=== PATIENT | female | born 1930 | race Caucasian/White ===

== ENCOUNTER 2016-08-09 02:39 | Inpatient (IN) ==
[2016-08-07 12:08] LABS: HEMATOCRIT 47.6 % (37.0-47.0); HEMOGLOBIN 15.5 g/dL (12.0-16.0); MCHC 32.6 g/dL (33-37); MCV 92.2 FL (81-99); MPV 9.7 FL (7.4-10.4); RBC 5.16 XMIL (4.2-5.4)
--- NOTE | 2016-08-07 12:22 | EKG Report ---
Test Performed on : 08/07/2016 11:56:51 AM Test Reason : PAT Blood Pressure : / mmHG Vent. Rate : 078 BPM Atrial Rate : 078 BPM P-R Int : 178 ms QRS Dur : 078 ms QT Int : 388 ms P-R-T Axes : 063 035 048 degrees QTc Int : 442 ms Normal sinus rhythm. Septal infarct , age undetermined Abnormal ECG No previous ECGs available Confirmed by Nagi ABBOTT, Marvin Fernandez ([id number]) on 08/07/2016 6:52:31 PM
[2016-08-07 12:33] LABS: AGAP 11; BUN 15 mg/dL (8-22); CALCIUM 9.3 mg/dL (8.8-10.2); CHLORIDE 98 mmol/L (98-107); COSMO 278; POTASSIUM 4.3 mmol/L (3.5-5.1); SODIUM 139 mmol/L (136-145); TCO2 30 mmol/L (25-35)
[2016-08-09] MEDS ORDERED: KEFZOL 1 GM/D5W 50 ML ONE (05:31)
[2016-08-09] MEDS ORDERED: REGLAN ONE (05:31)
[2016-08-09] MEDS ORDERED: LR 1,000 ML ONE ×2 (05:31→11:00)
[2016-08-09] MEDS ORDERED: PEPCID ONE (05:31)
[2016-08-09] MEDS ORDERED: ALBUTEROL NEB INH ONE (06:25)
[2016-08-09] MEDS ORDERED: ALBUTEROL NEB ONE (06:34)
[2016-08-09] MEDS ORDERED: KEFZOL ONE (07:11)
[2016-08-09] MEDS ORDERED: HEPARIN ONE ×2 (07:11)
[2016-08-09] MEDS ORDERED: MARCAINE 0.25% PF/EPI 1:200,000 ONE (07:11)
[2016-08-09] MEDS ORDERED: NS 2,000 ML ONE (07:12)
[2016-08-09 08:40] LABS: URINE MICRO REVIEW NEEDED? NO; URINE SOURCE CATH
[2016-08-09 08:52] LABS: BILIRUBIN URINE NEGATIVE (NEGATIVE); BLOOD URINE NEGATIVE (NEGATIVE); COLOR YELLOW; GLUCOSE URINE NEGATIVE (NEGATIVE); LEUKOCYTES URINE NEGATIVE (NEGATIVE); NITRITE URINE NEGATIVE (NEGATIVE); PROTEIN URINE NEGATIVE (NEGATIVE); SP GRAVITY URINE 1.015; TURBIDITY URINE TURBID (CLEAR); UROBILINOGEN URINE NORMAL (NORMAL)
[2016-08-09 08:55] LABS: UR EPITHELIAL CELLS <10 /HPF (<10); URINE BACTERIA NEGATIVE /HPF; URINE RBC <10 /HPF (<10); URINE WBC <10 /HPF (<10)
[2016-08-09] MEDS ORDERED: DIPRIVAN 1% ONE (10:29)
[2016-08-09] MEDS ORDERED: NS 1,000 ML ONE (10:46)
[2016-08-09] MEDS ORDERED: STERILE WATER INJ. ONE (10:59)
[2016-08-09] MEDS ORDERED: SODIUM CHLORIDE 0.9% 10 ML ONE (10:59)
[2016-08-09] MEDS ORDERED: NEO-SYNEPHRINE ONE (10:59)
[2016-08-09] MEDS ORDERED: ZOFRAN ONE (10:59)
[2016-08-09] MEDS ORDERED: EPHEDRINE ONE (11:00)
[2016-08-09] MEDS ORDERED: NS 250 ML ONE (11:00)
[2016-08-09] MEDS ORDERED: ROBINUL ONE (11:00)
[2016-08-09] MEDS ORDERED: NORCURON ONE (11:00)
[2016-08-09] MEDS ORDERED: QUELICIN (DOSE) ONE (11:00)
[2016-08-09] MEDS ORDERED: DECADRON ONE (11:00)
[2016-08-09] MEDS ORDERED: PIGGYBACK SET 7393 ONE (11:00)
[2016-08-09] MEDS ORDERED: XYLOCAINE-MPF 2% ONE (11:00)
--- NOTE | 2016-08-09 11:04 | OPERATIVE NOTE ---
PROCEDURE DATE: 08/09/2016 PROCEDURE PERFORMED: 1. Bilateral femoral artery exposure, open coiling of the right hypogastric artery using an 8 x 14 mm interlock coil x2. 2. Endovascular aneurysm repair using a 26 x 12 x 18 graft with a 12 x 12 left limb. SURGEON: Vince Haley MD. OVEN OPERATOR AUTOMATIC: . 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 POSTOPERATIVE DIAGNOSIS: A 5.5 cm infrarenal abdominal aortic aneurysm and right common iliac artery aneurysm. INDICATION: This is an 86-year-old lady with a 5.5 cm aneurysm with a right common iliac aneurysm that goes right down to the right internal takeoff. It was decided preoperatively to coil the right internal iliac so that we could cover the aneurysm completely and cover the internal, thereby treating the right common iliac aneurysm appropriately. DESCRIPTION OF PROCEDURE IN DETAIL: After satisfactory general endotracheal anesthesia was achieved, the abdomen was prepped and draped in a sterile fashion. An Ioban drape was used. We could palpate the femoral pulses. We marked the drape transversely over the palpated pulse, anesthetized the skin with 0.25 Marcaine with epinephrine. We made a transverse incision over the pulse at the ilioinguinal ligament. After incising the skin, we carried our incision through the subcutaneous tissue and exposed the common femoral as it came under the ilioinguinal ligament on both sides. We surrounded it with an umbilical tape proximally and a large vessel loop distally. Small branches were surrounded with 2-0 silks on both sides. We then gave the patient 5000 units of heparin systemically. We placed a 6-Norwegian sheath, Seldinger technique, in the left common femoral and did the same on the right side. We passed a Glidewire into the aorta, followed by a pigtail catheter. We then shot an aortogram showing bilateral patency to the internal iliacs. It also established the locale of the renal arteries. We then chose a Berenstein catheter that we passed up the left and followed by a Chencho wire. We shot a retrograde arteriogram on the right to document the takeoff of the internal iliac on the right side. We then used our pigtail catheter to enter the right common iliac from the left side. We then switched to a Chencho wire and then passed the Berenstein catheter over that wire. We positioned it at the takeoff of the opening or the orifice to the right internal iliac. We then took out the Chencho wire and passed our Glidewire. We gained access to the right internal iliac but before we could deploy the coil, we lost access so we had to repeat the procedure. This time, we used again a pigtail catheter to enter the right common iliac from the left side, followed by a Chencho wire, followed by a 55 cm sheath, a 6-Norwegian sheath to go over to that side. We then reintroduced the Berenstein catheter, then a Glidewire. With torquing of the Berenstein catheter, as well as torquing on the Glidewire, we were able to engage the orifice to the right internal iliac. Once we advanced the Glidewire down into the internal iliac, we then advanced the Berenstein catheter. We then obtained the 8 x 14 interlock coils and carried them all the way across the Berenstein catheter. After we got the coils down to the tip of the catheter, we retracted the catheter back to the proximal right internal iliac and in the position where we wanted to deployed the coils to take care of those proximal branches. We deployed two 8 x 14 coils. We felt good about the occlusion of this vessel. I then removed the Berenstein catheter and pulled the long sheath back into the left common iliac. At this point, we passed our Glidewire back up the right side into the aorta, followed by a Berenstein catheter, followed by a Chencho wire, followed by the 16-Norwegian sheath. We then introduced the 26 x 12 x 18 device up the right side, up to the takeoff of the renals. We put our pigtail back up the left and shot a picture of the renals to show them. Then we opened the proximal end right below the renal take-off, left renal taken off. We pulled the pigtail back. We were able to engage the gate and pass the Glidewire up into the graft. We then followed that with a pigtail. We pulled the wire back and twirled the pigtail inside the graft, proving we were inside the graft. We then switched to a Chencho wire and advanced our 12-Norwegian sheath up on the left side to the gate. We shot a retrograde arteriogram on the left to elham the internals. We then measured and determined that a 12 x 12 length graft limb would be fine going down the left side. It would give us plenty of length between the end of the graft and the internal iliac takeoff. We did not think an extension would be required. We then introduced the 12-Norwegian up to the top of the gate. Advanced the 12 x 12. Then pulled the sheath back and then deployed the 12 x 12 limb. We then pulled the sheath back on the right and finished deployment of the right side as well. It actually covered the internal take-off satisfactorily. We then put our aortic balloon up on the right side and ballooned the proximal end. We did put a 12 x 4 balloon up the left side and we ballooned the gate area, the bifurcation, and then the end of the graft on both sides. We replaced our pigtail and shot a completion aortogram. This showed no leak. The right common iliac aneurysm had been isolated and no filling of that aneurysm was identified. There was no flow down the right internal iliac as expected. The left internal remains patent. We were then satisfied with our completed grafting and coiling. We then removed the sheaths, closed both common femorals with 5-0 Prolene running stitches. We irrigated out both wounds with Kefzol- impregnated saline, placed 3-0 Polysorb in the subcutaneous tissue to cover the tissue over the artery, and then used a 2-0 Polysorb running in the Alex's fascia. We once again injected 0.25 Marcaine with epinephrine. We then closed the skin on each side with 4-0 Polysorb subcuticular stitches. Telfa and sterile OpSite were applied. She tolerated it well. Estimated blood loss was about 100 mL. She did require 170 mL of contrast. She was sent to the recovery room in satisfactory condition.
[2016-08-09] MEDS ORDERED: ZOFRAN IV PRN (13:26)
[2016-08-09] MEDS ORDERED: BUPRENEX IV PRN (13:26)
[2016-08-09] MEDS: NS 1,000 ML IV SCH ×3 (14:43→21:53)
[2016-08-10] MEDS: NS 1,000 ML IV SCH ×4 (03:43→14:22)
[2016-08-10 05:30] LABS: MANUAL DIFF NEEDED? NO
[2016-08-10 05:32] LABS: BASO% 0.1 % (0.0-0.8); EOS# 0.01 X1000 (0.0-0.7); EOS% 0.1 % (0.0-10.0); HEMATOCRIT 37.2 % (37.0-47.0); HEMOGLOBIN 11.9 g/dL (12.0-16.0); LYMPH# 1.57 X1000 (1.2-3.4); MCH 30.4 PG (27-31); MCV 94.9 FL (81-99); MONO# 0.97 X1000 (0.11-0.59); MONO% 9.9 % (1.7-9.3); MPV 9.4 FL (7.4-10.4); NEUT% 73.9 % (42.2-75.2); PLT 187 X1000 (130-400); RBC 3.92 XMIL (4.2-5.4)
[2016-08-10 05:49] LABS: AGAP 7; BUN 8 mg/dL (8-22); CALCIUM 7.1 mg/dL (8.8-10.2); CHLORIDE 106 mmol/L (98-107); COSMO 275; POTASSIUM 3.9 mmol/L (3.5-5.1); SODIUM 139 mmol/L (136-145); TCO2 26 mmol/L (25-35)
[2016-08-10] MEDS: NORCO-10 PO PRN ×2 (12:48→21:01)
--- NOTE | 2016-08-11 10:06 | PROGRESS NOTE ---
DATE: 08/11/2016 SUBJECTIVE: Patient doing well. No major issues. Transferred from the ICU yesterday. OBJECTIVE: Vital Signs: Patient is currently afebrile. Her vital signs have been stable. General: No acute distress. Resting comfortably in bed. Cardiovascular: Regular rate and rhythm. Lungs: Grossly clear. Abdomen: Soft, nontender, nondistended. Incision is okay. Extremities: The lower extremities are perfused. ASSESSMENT/PLAN: An 86-year-old, female, status post endovascular and aneurysmal repair. Overall patient is doing well tolerating a regular diet. We will plan on discharge tomorrow. cc: MD Vince Arroyo MD
[2016-08-11] MEDS: NS 1,000 ML IV SCH (21:20)
[2016-08-11] MEDS: NORCO-10 PO PRN (21:20)
--- NOTE | 2016-08-12 07:09 | PROGRESS NOTE ---
DATE: 08/12/2016 SUBJECTIVE: Patient did have an episode of desaturation last night. She is now currently on 4 L nasal cannula. Says that she was a strong smoker in the past but at this time denies any kind of significant shortness of breath. OBJECTIVE: Vital Signs: Patient is currently afebrile. Her vital signs have been stable. Her current O2 saturations are in the high 90s on 4 L nasal cannula. General Examination: No acute distress. Cardiovascular: Regular rate and rhythm. Lungs: Some coarse sounds noted. Abdomen: Soft, nontender, nondistended. Incision is okay. Extremities: Lower extremities perfused. ASSESSMENT/PLAN: An 86-year-old, female, status post endovascular aneurysmal repair. Postoperative state. At this time, the patient seems to be doing relatively well. Her respiratory status has become somewhat of an issue. She has a strong smoking past history. She did not require any supplemental oxygen at home. We will mobilize the patient and check her oxygen saturations. If continues to be an issue, may need supplemental oxygen and a pulmonary consult. If normalizing, we will consider discharge later today. Otherwise, we will keep into the week. cc: MD Vince Arroyo MD
[2016-08-12] MEDS: NS 1,000 ML IV SCH ×2 (07:51→16:08)
[2016-08-12 12:42] LABS: ALLEN TEST YES; BE 3.9 mmoll (-3.0-3.0); BLOOD TYPE ARTERIAL; DRAW SITE R RADIAL; METHB 1.7 % (0.0-1.5); O2(CT) 17.5 mL/dL (15.0-23.0); PCO2(98.6) 38 mmHg (35-45); PO2(98.6) 52 mmHg (60-100); SAMPLE BLOOD; SAO2 95.8 % (95.0-100.0); THB 13.7 g/dL (11.5-17.4); pH(98.6) 7.47 (7.35-7.45)
[2016-08-12 12:43] LABS: MODALITY CANNULA
[2016-08-12 13:17] LABS: MANUAL DIFF NEEDED? NO
[2016-08-12 13:21] LABS: BASO% 0.2 % (0.0-0.8); EOS# 0.08 X1000 (0.0-0.7); EOS% 0.9 % (0.0-10.0); HEMATOCRIT 45.2 % (37.0-47.0); HEMOGLOBIN 14.4 g/dL (12.0-16.0); LYMPH# 1.34 X1000 (1.2-3.4); LYMPH% 15.4 % (20.5-51.1); MCH 30.7 PG (27-31); MCHC 31.9 g/dL (33-37); MCV 96.4 FL (81-99); MONO# 0.84 X1000 (0.11-0.59); MONO% 9.7 % (1.7-9.3); MPV 9.9 FL (7.4-10.4); NEUT% 73.8 % (42.2-75.2); PLT 220 X1000 (130-400); RBC 4.69 XMIL (4.2-5.4)
[2016-08-12 14:07] LABS: AGAP 9; ALBUMIN 3.2 g/dL (3.5-5.0); ALKALINE PHOSPHATASE 67 U/L (32-104); BUN 5 mg/dL (8-22); CALCIUM 7.9 mg/dL (8.8-10.2); CHLORIDE 98 mmol/L (98-107); COSMO 268; GOT 21 U/L (10-30); GPT 10 U/L (10-36); MAGNESIUM 1.7 mg/dL (1.5-2.7); POTASSIUM 3.3 mmol/L (3.5-5.1); SODIUM 135 mmol/L (136-145); TCO2 28 mmol/L (25-35); TOTAL PROTEIN 6.6 g/dL (6.3-8.3)
--- NOTE | 2016-08-12 14:29 | Diag Imaging Result Document ---
PROCEDURE NAME: CHEST-PORTABLE - 08/12/2016 PORTABLE CHEST: COMPARISON: No comparison exam. FINDINGS: There are apparent COPD changes. There are small to medium bilateral pleural effusions. It is difficult to determine if there is any basilar consolidation present. There is no pneumothorax seen. The heart borders are largely obscured which limits evaluation for heart size. IMPRESSION: 1. COPD. 2. Small to medium bilateral pleural effusions.
--- NOTE | 2016-08-12 14:48 | PROGRESS NOTE ---
DATE: 08/12/2016 ADDENDUM REPORT PAST MEDICAL HISTORY: She has appendectomy, cholecystectomy, she has had a hysterectomy. These were done years ago. She really does not have any other medical problems other than she gets bronchitis. ALLERGIES: She is allergic to sulfa. She does not have home oxygen and the saturations have been dropping. We are going to check blood gasses. We will see. We have got to determine whether she needs O2. If she has to go home with oxygen we need to get that set up. We will check blood gasses. We will check a chest x-ray, continue her present treatments. Her oxygen saturations right now are 94% on 2 L. I told her there is a good chance she would not go home today. We need to determine whether she needs oxygen or not. cc: MD Vince Jay MD
--- NOTE | 2016-08-12 15:41 | CONSULTATION ---
DATE OF CONSULTATION: 08/12/2016 HISTORY OF PRESENT ILLNESS: Patient was admitted to the hospital on 08/07/2016 I believe for a triple abdominal aortic aneurysm repair. Patient underwent bilateral femoral artery exposure and then endovascular aneurysm repair per Dr. Haley and that was done on 08/09/2016. Recovery has been good. She was in the unit. She had a little bit of sore throat. She is complaining that her ears feel a little bit stopped up, but she does not feel short of breath, and she is anxious and wanting to go home. EKG from the shows normal sinus rhythm, slow R-wave progression. Loss of R-waves in V2. I do not have any comparison at this time. CT of the neck, chest, abdomen, pelvis back in 06/29/2016 showed severe pulmonary emphysema, patchy fibrosis in the apices in lung bases, superimposed infectious infiltrate at that time in the right lung base. She had large aortic and right iliac aneurysm that had increased in size. Aortic aneurysm measured 5 x 5 cm. Previously was 3.4 x 3.3, and another smaller intrarenal abdominal aortic aneurysm that was contiguous or more superior to the 1st and measured 4.9 x 4.2. Extensive iliac atherosclerotic disease. PAST MEDICAL HISTORY: Peripheral vascular disease. COPD. Osteoarthritis. Long history of smoking. She has had allergic rhinitis and bilateral eustachian tube obstruction before. She underwent surgery as I said on the and has done well. Diet has been advanced. PHYSICAL EXAMINATION: General: Today sitting up in a chair. Awake, alert and oriented x3. Vital signs: Temperature 98.6 degrees, pulse 74, respirations 18, blood pressure 139/70. HEENT: Pupils are equal and round, central venous pressure less than 6 cm. Lungs: Clear in all lung huggins. Cardiovascular: Regular rhythm and rate without murmur or S3. Urine output was 1300 mL. LABORATORY: Reviewed from the . Unremarkable. Hematocrit 37. Chemistries: Sodium 139, potassium 3.9, chloride 106, bicarb 26, BUN 8, creatinine 0.4. ASSESSMENT/PLAN: 1. Status post endoscopic aortic aneurysm repair. Seems to be doing well. 2. Chronic obstructive pulmonary disease. Long history of smoking. She is, I believe on home O2. She has had nebulizers recently because of sinus infection or sinus irritation. We will check blood gases. We will check a chest x-ray. If that looks good, I think she can go home. She really wants to go home. I will explore some more of her past medical history. See we can line that up for her. cc: MD Vince Jay MD
[2016-08-12] MEDS ORDERED: POTASSIUM PHOSPHATE 20 MMOL in NS 250 ML IV ONE (16:00)
[2016-08-12] MEDS ORDERED: LASIX IV ONE (16:57)
[2016-08-12] MEDS ORDERED: POTASSIUM PHOSPHATE 40 MEQ in NS 250 ML IV ONE (18:00)
--- NOTE | 2016-08-13 06:04 | PROGRESS NOTE ---
DATE: 08/12/2016 Results of her x-rays and stuff are back. It is about 5:00 p.m. It is actually a patient of Dr. Taurus Walden. Dr. Haley recently performed endothelial abdominal aortic aneurysm repair. He is doing well except still requiring oxygen and still some shortness of breath. Chest x-ray did reveal bilateral pleural effusions. Note that her potassium was a little low. Dr. Bland had supplemented some K-Phos, and I will give her a little bit more. I will also give her 1 dose of Lasix. LABORATORY DATA: Blood gases, pH was 7.47, pCO2 of 38, pO2 of 52, O2 saturation 95%, but that was on 28% FiO2. ASSESSMENT: She has underlying chronic obstructive pulmonary disease with some pleural effusions. PLAN: We will see if we can diurese a little bit, but she may get to the point she is going to require some home O2. I will have Respiratory assess and see if she needs home O2. We will supplement her potassium and her K-Phos. I do not see any sign of infection. cc: MD Vince Jay MD
[2016-08-13 06:16] LABS: AGAP 8; ALBUMIN 2.9 g/dL (3.5-5.0); ALKALINE PHOSPHATASE 61 U/L (32-104); BUN 5 mg/dL (8-22); CALCIUM 7.2 mg/dL (8.8-10.2); CHLORIDE 103 mmol/L (98-107); COSMO 277; GOT 17 U/L (10-30); GPT 9 U/L (10-36); MAGNESIUM 1.6 mg/dL (1.5-2.7); POTASSIUM 3.4 mmol/L (3.5-5.1); SODIUM 140 mmol/L (136-145); TCO2 29 mmol/L (25-35); TOTAL BILIRUBIN 0.51 mg/dL (0.20-1.00); TOTAL PROTEIN 5.8 g/dL (6.3-8.3)
[2016-08-13] MEDS ORDERED: POTASSIUM PHOSPHATE 40 MEQ in NS 250 ML IV ONE (08:00)
--- NOTE | 2016-08-13 08:14 | Diag Imaging Result Document ---
PROCEDURE NAME: CHEST-PORTABLE - 08/13/2016 AP PORTABLE CHEST, 08/13/2016 AT 0545 HOURS: FINDINGS: There are pleural effusions bilaterally. There is apical pleural scarring bilaterally and there are calcified nodes in both sylwia. There may be mild interstitial pulmonary edema. Compared to 08/12/2016, this has not changed. IMPRESSION: Pulmonary edema and pleural effusions.
[2016-08-13] MEDS ORDERED: LASIX PO SCH (09:00)
[2016-08-13] MEDS ORDERED: MICRO-K PO SCH (09:00)
--- NOTE | 2016-08-13 09:37 | PROGRESS NOTE ---
DATE: 08/13/2016 SUBJECTIVE: I entered the room with the patient basically begging to go home. I reviewed all of her findings from the weekend with the patient and her daughter, and I told her that she would probably do fine at home, but we needed to shore up a couple of things prior to discharge. OBJECTIVE: Vital Signs: Temperature 97.9, respirations 16, blood pressure 141/64. PHYSICAL EXAMINATION: In general, she is a thin, white female, in no acute distress. She had no difficulty breathing. The patient's lungs are clear with increased expiratory phase. No wheezes. Cardiovascular: Regular, approximately 80 beats per minute. Surgical wounds in the iliac areas looked very clean. ASSESSMENT AND PLAN: 1. I do not have objection to the patient being discharged. I would like for her to get one more bag of potassium phosphate, and I have started her on a low dose of p.o. Lasix for approximately 7 days until we can see her in followup. She does have pleural effusions but does not appear to be critical at the present time. 2. She will require oxygen at home. 3. Nutrition was discussed extensively. 4. Smoking cessation was discussed as well. 5. The patient will need a home health evaluation, and I think this would be appropriate until she gains her feet and is a little more mobile. This may include anything from Home Health aides to home physical therapy. cc: MD Vince Alcantara MD
[2016-08-13 12:04] VITALS: BP 130/71
--- NOTE | 2016-08-16 11:03 | DISCHARGE SUMMARY ---
ADMISSION DATE: 08/09/2016 DISCHARGE DATE: 08/13/2016 PRIMARY DISCHARGE DIAGNOSES: 1. A 5.5 cm infrarenal abdominal aortic aneurysm with the right common iliac aneurysm 2. Chronic obstructive pulmonary disease. PRIMARY PROCEDURE: Endovascular repair of an infrarenal abdominal aortic aneurysm with a coiling of the right hypogastric artery. Hospital COURSE: Ms. Blood underwent the above-noted procedure on 08/09/2016. She did well from the procedure and we have started her on liquids the evening of her surgery. On the first postoperative day we decreased her IV rate and advanced her diet. She was transferred out of the unit to the floor. Dr. Bland was covering over the weekend and asked the hospitalist to see year about her pulmonary disease and her hypoxemia. She did require oxygen to maintain a SaO2 of 90%. By 08/13/2016; however, she was doing generally well. It was felt that she would benefit from home oxygen at 2 L until her pulmonary status improved. However, she was tolerating her diet well and she had no significant abdominal pain. Her incisions were fine. She had pulses of her feet so it was felt she could be discharged home on 08/13/2016. She will return to the office in 1 week. cc: MD Taurus Dave MD
== END 2016-08-13 16:33 | disposition home or self-care (01) ==
LOC: SURHOLD 02:39 → ICU 09:30 → 4N 08-10 17:24
PROVIDERS: ADMIT Surgery; ATTEND Surgery